=== PATIENT | male | born 1945 | race Hispanic/Latino ===

== ENCOUNTER 2024-10-22 16:18 | Emergency (ER) | payer MEDICARE ==
[2024-10-22] MEDS ORDERED: Acetaminophen 325 MG TAB ONE (16:59)
[2024-10-22] MEDS ORDERED: Bacitracin 1 PK ONE (17:00)
== END 2024-10-22 17:50 | disposition home or self-care (01) ==
LOC: MADERS 16:18
DX: S00.01XA Abrasion of scalp, initial encounter (principal); S50.312A Abrasion of left elbow, initial encounter; W11.XXXA Fall on and from ladder, initial encounter
CPT/HCPCS: 70450; 72125